=== PATIENT | male | born 1955 | race African-American/Black ===

== ENCOUNTER 2021-01-14 17:40 | Inpatient (IN) | payer OTHER ==
[2021-01-14 18:12] VITALS: BMI 24.2
[2021-01-14] MEDS ORDERED: ONDANSETRON *ODT* 4 MG TABLET SL PRN (20:20)
[2021-01-14] MEDS ORDERED: NICOTINE POLACRILEX 2 MG GUM BUC PRN (20:20)
[2021-01-14] MEDS ORDERED: IBUPROFEN 400 MG TABLET (FP) PO PRN (20:20)
[2021-01-14] MEDS ORDERED: METHOCARBAMOL 500 MG TABLET PO PRN (20:20)
[2021-01-14] MEDS ORDERED: BISMUTH SUBSALICYLATE 524 MG/30 ML PO PRN (20:20)
[2021-01-14] MEDS ORDERED: chlordiazePOXIDE HCL 25 MG CAPSULE PO PRN (20:20)
[2021-01-14] MEDS ORDERED: ACETAMINOPHEN 325 MG TABLET (FP) PO PRN ×2 (20:20)
[2021-01-14] MEDS ORDERED: MAGNESIUM CITRATE 300 ML BOTTLE PO PRN (20:20)
[2021-01-14] MEDS ORDERED: MAGNESIUM HYDROX 2400MG/30ML ORAL SUSPENSION 30 ML CUP PO PRN (20:20)
[2021-01-14] MEDS ORDERED: MENTHOL/PHENOL 1 EACH UD MM PRN (20:20)
[2021-01-14] MEDS ORDERED: MAG HYDROX/AL HYDROX/SIMETH 30 ML UNIT-DOSE CUP PO PRN (20:20)
[2021-01-14] MEDS: TIOTROPIUM BROMIDE 2.5 MCG (SPIRIVA) RESPIMAT INHALER IH SCH (23:05)
[2021-01-14] MEDS: BUDESONIDE/FORMETEROL FUMARATE 160/4.5 mcg INHALER IH SCH (23:05)
[2021-01-14] MEDS: LATANOPROST 0.005% OPHTH SOLN 2.5ML BOTTLE OU SCH (23:06)
[2021-01-14] MEDS: MELATONIN 5 MG TABLETS PO SCH (23:06)
[2021-01-14] MEDS: THIAMINE HCL 100 MG TABLET (FP) PO SCH (23:06)
[2021-01-14] MEDS: chlordiazePOXIDE HCL 25 MG CAPSULE PO SCH (23:07)
[2021-01-14] MEDS: hydrOXYzine PAMOATE 25 MG CAPSULE (FP) PO SCH (23:07)
[2021-01-14] MEDS: ALBUTEROL SO4 HFA INHALER IH PRN (23:23)
[2021-01-15] MEDS: chlordiazePOXIDE HCL 25 MG CAPSULE PO SCH ×4 (06:12→22:39)
[2021-01-15] MEDS: hydrOXYzine PAMOATE 25 MG CAPSULE (FP) PO SCH ×5 (06:23→22:39)
[2021-01-15 09:59] LABS: HEMATOCRIT 30.3 % (35.4-49); HEMOGLOBIN 10.2 GM/dL (11.7-16.9); MCH 32.3 pg (25.7-33.7); MCHC 33.7 g/dl (32.0-35.9); MEAN CELL VOLUME 95.9 fl (80-96); MEAN PLT VOLUME 7.3 fl (7.5-11.1); PLATELET COUNT 244 K/MM3 (134-434); RBC 3.16 M/mm3 (4.00-5.60); RDW 16.1 % (11.9-15.9); WHITE BLOOD COUNT 5.1 K/mm3 (4.0-10.0)
[2021-01-15 10:07] LABS: ALBUMIN 3.3 g/dl (3.4-5.0); BLOOD UREA NITROGEN 8.8 mg/dL (7-18); CALCIUM 8.4 mg/dL (8.5-10.1)
[2021-01-15 10:11] LABS: CREATININE 0.8 mg/dL (0.55-1.3)
[2021-01-15 10:12] LABS: BILIRUBIN,TOTAL 0.4 mg/dL (0.2-1); TOT PROT 6.4 g/dl (6.4-8.2)
[2021-01-15] MEDS: ALBUTEROL SO4 HFA INHALER IH PRN ×2 (12:09→22:50)
[2021-01-15] MEDS: PRENATAL VITAMINS W/ FOLIC ACID TABLET (FP) PO SCH (12:47)
[2021-01-15] MEDS: FOLIC ACID 1 MG TABLET (FP) PO SCH (12:47)
[2021-01-15] MEDS: NICOTINE 7 MG/24 HOURS TOPICAL PATCH TD SCH (12:47)
[2021-01-15] MEDS: BUDESONIDE/FORMETEROL FUMARATE 160/4.5 mcg INHALER IH SCH ×3 (12:47→23:10)
[2021-01-15] MEDS: TIOTROPIUM BROMIDE 2.5 MCG (SPIRIVA) RESPIMAT INHALER IH SCH (12:48)
[2021-01-15] MEDS: MELATONIN 5 MG TABLETS PO SCH (22:39)
[2021-01-15] MEDS: LATANOPROST 0.005% OPHTH SOLN 2.5ML BOTTLE OU SCH (22:42)
[2021-01-15] MEDS: THIAMINE HCL 100 MG TABLET (FP) PO SCH (22:42)
[2021-01-16] MEDS: chlordiazePOXIDE HCL 25 MG CAPSULE PO SCH ×4 (05:33→22:21)
[2021-01-16] MEDS: hydrOXYzine PAMOATE 25 MG CAPSULE (FP) PO SCH ×5 (05:33→22:21)
[2021-01-16] MEDS: ALBUTEROL SO4 HFA INHALER IH PRN ×4 (05:35→22:24)
[2021-01-16] MEDS: BUDESONIDE/FORMETEROL FUMARATE 160/4.5 mcg INHALER IH SCH ×2 (09:11→22:22)
[2021-01-16] MEDS: PRENATAL VITAMINS W/ FOLIC ACID TABLET (FP) PO SCH (09:52)
[2021-01-16 10:16] LABS: HEMATOCRIT 29.5 % (35.4-49); HEMOGLOBIN 10.3 GM/dL (11.7-16.9); MCH 33.1 pg (25.7-33.7); MCHC 34.8 g/dl (32.0-35.9); MEAN CELL VOLUME 95.2 fl (80-96); MEAN PLT VOLUME 7.2 fl (7.5-11.1); PLATELET COUNT 269 K/MM3 (134-434); RDW 16.1 % (11.9-15.9); WHITE BLOOD COUNT 6.3 K/mm3 (4.0-10.0)
[2021-01-16] MEDS: FOLIC ACID 1 MG TABLET (FP) PO SCH (10:51)
[2021-01-16] MEDS: NICOTINE 7 MG/24 HOURS TOPICAL PATCH TD SCH (10:51)
[2021-01-16] MEDS: TIOTROPIUM BROMIDE 2.5 MCG (SPIRIVA) RESPIMAT INHALER IH SCH (10:52)
[2021-01-16] MEDS: MELATONIN 5 MG TABLETS PO SCH (22:21)
[2021-01-16] MEDS: THIAMINE HCL 100 MG TABLET (FP) PO SCH (22:21)
[2021-01-16] MEDS: LATANOPROST 0.005% OPHTH SOLN 2.5ML BOTTLE OU SCH (22:21)
[2021-01-17] MEDS ORDERED: chlordiazePOXIDE HCL 10 MG CAPSULE PO PRN
[2021-01-17] MEDS: chlordiazePOXIDE HCL 10 MG CAPSULE PO SCH ×4 (05:27→22:23)
[2021-01-17] MEDS: hydrOXYzine PAMOATE 25 MG CAPSULE (FP) PO SCH ×5 (05:28→22:22)
[2021-01-17 06:07] LABS: SARS-CoV-2 NAA Not Detected (Not Detected)
[2021-01-17] MEDS: NICOTINE 7 MG/24 HOURS TOPICAL PATCH TD SCH (12:49)
[2021-01-17] MEDS: PRENATAL VITAMINS W/ FOLIC ACID TABLET (FP) PO SCH (12:50)
[2021-01-17] MEDS: FOLIC ACID 1 MG TABLET (FP) PO SCH (12:51)
[2021-01-17] MEDS: BUDESONIDE/FORMETEROL FUMARATE 160/4.5 mcg INHALER IH SCH ×2 (12:52→22:25)
[2021-01-17] MEDS: TIOTROPIUM BROMIDE 2.5 MCG (SPIRIVA) RESPIMAT INHALER IH SCH (12:52)
[2021-01-17 13:00] LABS: IRON SERUM 44 ug/dL (50-175)
[2021-01-17 13:02] LABS: TOTAL IRON BINDING CAPACITY 290 ug/dL (250-450)
[2021-01-17] MEDS: THIAMINE HCL 100 MG TABLET (FP) PO SCH (22:22)
[2021-01-17] MEDS: MELATONIN 5 MG TABLETS PO SCH (22:22)
[2021-01-17] MEDS: LATANOPROST 0.005% OPHTH SOLN 2.5ML BOTTLE OU SCH (22:24)
[2021-01-18] MEDS ORDERED: chlordiazePOXIDE HCL 10 MG CAPSULE PO SCH (05:00)
[2021-01-18] MEDS: hydrOXYzine PAMOATE 25 MG CAPSULE (FP) PO SCH ×2 (05:44→09:40)
[2021-01-18 09:15] VITALS: BP 135/87; PULSE 91; TEMP 97.1
[2021-01-18] MEDS: FOLIC ACID 1 MG TABLET (FP) PO SCH (09:40)
[2021-01-18] MEDS: PRENATAL VITAMINS W/ FOLIC ACID TABLET (FP) PO SCH (09:40)
[2021-01-18] MEDS: NICOTINE 7 MG/24 HOURS TOPICAL PATCH TD SCH (09:41)
[2021-01-18] MEDS: TIOTROPIUM BROMIDE 2.5 MCG (SPIRIVA) RESPIMAT INHALER IH SCH (09:41)
[2021-01-18] MEDS: BUDESONIDE/FORMETEROL FUMARATE 160/4.5 mcg INHALER IH SCH (09:41)
[2021-01-19] MEDS ORDERED: chlordiazePOXIDE HCL 10 MG CAPSULE PO ONE (05:00)
== END 2021-01-18 11:45 | disposition home or self-care (01) | DRG 897 ==
LOC: YASAS 17:40 → Y3N 20:49
PROVIDERS: ADMIT Allergy & Immunology; ATTEND Allergy & Immunology
PROC: HZ2ZZZZ Detoxification Services for Substance Abuse Treatment (ICD-10-PCS; principal; 2021-01-14)
DX: F10.230 Alcohol dependence with withdrawal, uncomplicated (principal); F14.10 Cocaine abuse, uncomplicated; D64.9 Anemia, unspecified; J44.9 Chronic obstructive pulmonary disease, unspecified; H40.9 Unspecified glaucoma; R03.0 Elevated blood-pressure reading, without diagnosis of hypertension; Z88.0 Allergy status to penicillin
CPT/HCPCS: 36415; 80053; 82947; 82962; 83036; 83540; 83550; 85027; 86780; C9803; U0003; U0005